=== PATIENT | female | born 1955 | race African-American/Black ===

== ENCOUNTER 2016-08-26 17:02 | Inpatient (IN) | payer MEDICARE ==
[~2016-08-26] VITALS: Ht 160 cm; Wt 53.1 kg
[~2016-08-26 17:02] MED LIST: ASPI-1159 PO; CARV6.2548 PO; D-ME118S13 PO; DIGO125T82 PO; GLIM2TAB2 PO; HYDR-4134 PO; INSU3INS6 SUBCUT; LINA5TAB PO; LOSA50TA20 PO; MONT10TA21 PO; NASOI BOTHNSTRLS; SAXA5TAB PO; SITA50TA3 PO; SPIR25TA4 PO; TIOT18CA3 INH
[2016-08-26] MEDS ORDERED: SODIUM CHLORIDE 0.9% 1,000 ML IV ONE (17:27)
[2016-08-26 17:48] LABS: EOSINOPHILS % 3.3 % (0.0-5.0); HEMATOCRIT. 30.1 % (36.0-48.0); HEMOGLOBIN. 9.6 g/dL (12.0-16.0); LYMPHOCYTES % 20.2 % (20.0-50.0); MEAN CORPUSCULAR HEMOGLOBIN 26.1 pg (28.0-32.0); MEAN CORPUSCULAR VOLUME 81.5 fL (81.0-99.0); MEAN PLATELET VOLUME 8.7 fl (7.4-10.4); NEUTROPHILS % 63.5 % (40.0-76.0); PLATELET 227 x1000/uL (130-400)
[2016-08-26 17:53] LABS: INR 1.1; PROTHROMBIN TIME 10.9 sec
[2016-08-26] MEDS ORDERED: ASPIRIN 325MG TABLET PO ONE (18:00)
[2016-08-26 18:07] LABS: CARBON DIOXIDE 26 mEq/L (21-32); CHLORIDE 106 mEq/L (98-107)
[2016-08-26 18:16] LABS: TROPONIN I 0.11 ng/mL (0.00-0.04)
[2016-08-26 23:16] VITALS: BP 136/73
[2016-08-26 23:24] VITALS: BP 136/73
[2016-08-26] MEDS ORDERED: HYDROCODONE/ACETAMINOPHEN 5/325MG TABLET PO PRN (23:45)
[2016-08-26] MEDS ORDERED: ONDANSETRON HCL 4MG/2ML VIAL IV PRN (23:45)
[2016-08-26] MEDS ORDERED: DEXTROSE 50% WATER 50ML SYRINGE IV PRN (23:45)
[2016-08-27 01:49] LABS: TROPONIN I 0.13 ng/mL (0.00-0.04)
[2016-08-27 01:50] LABS: CREATINE KINASE MB FRACTION 4.1 ng/mL (0.5-3.6)
[2016-08-27 04:00] VITALS: BP 132/78
[2016-08-27] MEDS: BLOOD SUGAR DIAGNOSTIC STRIP TEST SCH ×4 (07:24→21:10)
[2016-08-27 08:00] VITALS: BP 140/84
[2016-08-27] MEDS: ASPIRIN 81MG TABLET PO SCH (08:24)
[2016-08-27] MEDS: INSULIN LISPRO 100 UNITS/ML SUBCUT SCH ×4 (08:25→21:19)
[2016-08-27 10:35] LABS: BASOPHILS % 0.9 % (0.0-2.0); EOSINOPHILS % 3.3 % (0.0-5.0); HEMATOCRIT. 29.1 % (36.0-48.0); HEMOGLOBIN. 9.3 g/dL (12.0-16.0); LYMPHOCYTES % 19.9 % (20.0-50.0); MEAN CORPUSCULAR HEMOGLOBIN 25.9 pg (28.0-32.0); MEAN PLATELET VOLUME 8.9 fl (7.4-10.4); NEUTROPHILS % 61.9 % (40.0-76.0); PLATELET 218 x1000/uL (130-400); RED BLOOD CELL COUNT 3.59 mill/uL (4.2-5.4)
[2016-08-27 11:16] LABS: CREATINE KINASE MB FRACTION 4.2 ng/mL (0.5-3.6); TROPONIN I 0.13 ng/mL (0.00-0.04)
[2016-08-27 11:40] VITALS: BP 138/96
[2016-08-27] MEDS: HYDRALAZINE HCL 25MG TABLET PO SCH ×3 (13:29→21:07)
[2016-08-27 14:07] LABS: DIGOXIN 0.8 ng/mL (0.9-2.0)
[2016-08-27] MEDS: MONTELUKAST SODIUM 10MG TABLET PO SCH (17:01)
[2016-08-27] MEDS: CARVEDILOL 3.125 MG TABLET PO SCH (17:02)
[2016-08-27 19:17] LABS: *AMPHETAMINES SCREEN URINE NEGATIVE (NEGATIVE); *BARBITURATES SCREEN URINE NEGATIVE (NEGATIVE); *BENZODIAZEPINES SCREEN URINE NEGATIVE (NEGATIVE); *COCAINE SCREEN URINE NEGATIVE (NEGATIVE); CANNABINOID URINE SCREEN NEGATIVE (NEGATIVE); METHADONE URINE SCREEN NEGATIVE (NEGATIVE); OPIATES URINE SCREEN NEGATIVE (NEGATIVE); PHENCYCLIDINE URINE SCREEN NEGATIVE (NEGATIVE)
[2016-08-27 20:00] VITALS: BP 130/78
[2016-08-27] MEDS: LOSARTAN POTASSIUM 50 MG TABLET PO SCH (21:07)
[2016-08-28] VITALS: BP 129/92
[2016-08-28 04:00] VITALS: BP 134/85
[2016-08-28] MEDS: BLOOD SUGAR DIAGNOSTIC STRIP TEST SCH ×3 (06:45→18:12)
[2016-08-28] MEDS: INSULIN LISPRO 100 UNITS/ML SUBCUT SCH ×3 (06:45→18:13)
[2016-08-28] MEDS ORDERED: REGADENOSON 0.4 MG/5 ML IV ONE ×2 (07:30→08:38)
[2016-08-28] MEDS: CARVEDILOL 3.125 MG TABLET PO SCH ×2 (08:21→17:59)
[2016-08-28] MEDS: LOSARTAN POTASSIUM 50 MG TABLET PO SCH (08:22)
[2016-08-28] MEDS: ASPIRIN 81MG TABLET PO SCH (08:22)
[2016-08-28] MEDS: HYDRALAZINE HCL 25MG TABLET PO SCH ×3 (08:22→17:59)
[2016-08-28] MEDS ORDERED: LINAGLIPTIN 5MG TABLET PO SCH (09:00)
[2016-08-28] MEDS ORDERED: SPIRONOLACTONE 25MG TABLET PO SCH (09:00)
[2016-08-28] MEDS ORDERED: DIGOXIN 125MCG TABLET PO SCH (09:00)
[2016-08-28 11:21] LABS: HEMATOCRIT 29.9 % (36.0-48.0); HEMOGLOBIN 9.4 g/dL (12.0-16.0); MEAN CORPUSCULAR HEMOGLOBIN 25.6 pg (28.0-32.0); MEAN CORPUSCULAR VOLUME 81.2 fL (81.0-99.0); PLATELET 219 x1000/uL (130-400); RED BLOOD CELL COUNT 3.69 mill/uL (4.2-5.4); RED CELL DISTRIBUTION WIDTH 16.4 % (11.6-14.6)
[2016-08-28] MEDS: MONTELUKAST SODIUM 10MG TABLET PO SCH (17:59)
[2016-08-28 20:00] VITALS: BP 129/86
[2016-08-28 20:46] VITALS: BP 129/86
[2016-08-29] MEDS ORDERED: LOSARTAN POTASSIUM 25 MG TABLET PO SCH (09:00)
== END 2016-08-28 23:34 | disposition home or self-care (01) | DRG 308 ==
LOC: ER 19:19 → 7WST 20:16 → EDBEDREQTM 20:17 → EDBEDREQ 20:17 → ENRESERV 21:44
PROVIDERS: ADMIT Internal Medicine; ATTEND Internal Medicine
PROC: 4B02XTZ Measurement of Cardiac Defibrillator, External Approach (ICD-10-PCS; principal; 2016-08-26)
DX: I49.01 Ventricular fibrillation (principal); I50.23 Acute on chronic systolic (congestive) heart failure; I13.0 Hypertensive heart and chronic kidney disease with heart failure and stage 1 through stage 4 chronic kidney disease, or unspecified chronic kidney disease; I42.0 Dilated cardiomyopathy; D50.9 Iron deficiency anemia, unspecified; E11.22 Type 2 diabetes mellitus with diabetic chronic kidney disease; J44.9 Chronic obstructive pulmonary disease, unspecified; I25.10 Atherosclerotic heart disease of native coronary artery without angina pectoris; I44.7 Left bundle-branch block, unspecified; J98.4 Other disorders of lung; F17.210 Nicotine dependence, cigarettes, uncomplicated; N18.9 Chronic kidney disease, unspecified; Z79.4 Long term (current) use of insulin; Z79.82 Long term (current) use of aspirin; Z82.49 Family history of ischemic heart disease and other diseases of the circulatory system; Z83.3 Family history of diabetes mellitus; Z88.0 Allergy status to penicillin; Z88.8 Allergy status to other drugs, medicaments and biological substances; Z79.899 Other long term (current) drug therapy; Y92.89 Other specified places as the place of occurrence of the external cause; Z71.6 Tobacco abuse counseling; Z95.810 Presence of automatic (implantable) cardiac defibrillator
CPT/HCPCS: 36415; 71010; 78452; 80048; 80053; 80162; 80305; 82550; 82553; 82962; 83605; 83735; 83880; 84443; 84484; 85025; 85027; 85610; 93005; 93306; 96360; 99285; A9500; J1815; J2785; J7030

== ENCOUNTER 2016-11-07 00:05 | Inpatient (IN) | payer MEDICARE ==
[~2016-11-07] VITALS: Ht 160 cm; Wt 54.0 kg
[2016-11-07] MEDS ORDERED: SODIUM CHLORIDE 0.9% 1,000 ML IV ONE (01:13)
[2016-11-07] MEDS ORDERED: ONDANSETRON HCL 4MG/2ML VIAL IV STA (01:13)
[2016-11-07] MEDS ORDERED: MORPHINE SULFATE 4 MG/ML CPJ (NOT FOR IM USE) IV STA (01:13)
[2016-11-07] MEDS ORDERED: FAMOTIDINE 20MG/2ML VIAL IV STA (01:13)
[2016-11-07] MEDS ORDERED: ASPIRIN 81MG TABLET PO ONE (01:15)
[2016-11-07 01:38] LABS: BASOPHILS % 1.1 % (0.0-2.0); EOSINOPHILS % 1.5 % (0.0-5.0); HEMATOCRIT. 29.8 % (36.0-48.0); HEMOGLOBIN. 9.3 g/dL (12.0-16.0); LYMPHOCYTES % 19.3 % (20.0-50.0); MEAN CORPUSCULAR HEMOGLOBIN 23.5 pg (28.0-32.0); MEAN CORPUSCULAR VOLUME 75.1 fL (81.0-99.0); MEAN PLATELET VOLUME 8.5 fl (7.4-10.4); MONOCYTES % 14.9 % (2.0-8.0); NEUTROPHILS % 63.2 % (40.0-76.0); PLATELET 253 x1000/uL (130-400); RED BLOOD CELL COUNT 3.97 mill/uL (4.2-5.4); RED CELL DISTRIBUTION WIDTH 19.9 % (11.6-14.6)
[2016-11-07 01:47] LABS: INR 1.2; PROTHROMBIN TIME 12.8 sec (9.4-11.6)
[2016-11-07 01:51] LABS: AMMONIA 18 uMol/L (<32)
[2016-11-07 01:57] LABS: CARBON DIOXIDE 24 mEq/L (21-32); CHLORIDE 100 mEq/L (98-107); ETHANOL BLOOD < 10 mg/dL; TROPONIN I 0.08 ng/mL (0.00-0.04)
[2016-11-07] MEDS ORDERED: FUROSEMIDE 40MG/4ML VIAL IVP SCH (02:15)
[2016-11-07 04:54] LABS: CLARITY URINE CLEAR (CLEAR); COLOR URINE YELLOW (YELLOW); KETONES URINE NEGATIVE (NEGATIVE); LEUKOCYTE ESTERASE URINE NEGATIVE (NEGATIVE); NITRITE URINE NEGATIVE (NEGATIVE); OCCULT BLOOD URINE NEGATIVE (NEGATIVE); PROTEIN URINE 2+ (NEGATIVE); SPECIFIC GRAVITY URINE 1.016 (1.005-1.030)
[2016-11-07 06:20] LABS: *AMPHETAMINES SCREEN URINE NEGATIVE (NEGATIVE); *BARBITURATES SCREEN URINE NEGATIVE (NEGATIVE); *BENZODIAZEPINES SCREEN URINE NEGATIVE (NEGATIVE); *COCAINE SCREEN URINE NEGATIVE (NEGATIVE); CANNABINOID URINE SCREEN NEGATIVE (NEGATIVE); METHADONE URINE SCREEN NEGATIVE (NEGATIVE); OPIATES URINE SCREEN PRESUMTIVE POSITIVE (NEGATIVE); PHENCYCLIDINE URINE SCREEN NEGATIVE (NEGATIVE)
[2016-11-07] MEDS ORDERED: GUAIFENESIN 200MG/10ML SUGAR FREE UDC PO PRN (07:30)
[2016-11-07] MEDS ORDERED: ACETAMINOPHEN 325MG TABLET PO PRN (07:30)
[2016-11-07 09:02] LABS: FERRITIN 59 ng/mL (10-291)
[2016-11-07] MEDS ORDERED: INSULIN DETEMIR UD 100 UNITS/ML SYR SUBCUT SCH (10:00)
[2016-11-07] MEDS ORDERED: DIGOXIN 125MCG TABLET PO SCH (10:30)
[2016-11-07] MEDS ORDERED: DEXTROSE 50% WATER 50ML SYRINGE IV PRN (11:45)
[2016-11-07] MEDS: BUDESONIDE 0.5MG/2ML NEB HHN SCH ×2 (11:55→20:10)
[2016-11-07] MEDS: IPRATROPIUM/ALBUTEROL 0.5-3(2.5)MG/3ML NEB INH PRN (11:59)
[2016-11-07] MEDS: ENOXAPARIN 30MG/0.3ML SYR SUBCUT SCH (12:23)
[2016-11-07] MEDS: SPIRONOLACTONE 25MG TABLET PO SCH (12:24)
[2016-11-07] MEDS: ASPIRIN 81MG EC TABLET PO SCH (12:24)
[2016-11-07] MEDS: LOSARTAN POTASSIUM 50 MG TABLET PO SCH ×2 (12:24→21:26)
[2016-11-07] MEDS: HYDRALAZINE HCL 25MG TABLET PO SCH ×4 (12:24→21:00)
[2016-11-07] MEDS: BLOOD SUGAR DIAGNOSTIC STRIP TEST SCH ×3 (12:25→21:27)
[2016-11-07] MEDS: CARVEDILOL 3.125 MG TABLET PO SCH ×2 (12:33→21:26)
[2016-11-07] MEDS: INSULIN LISPRO 100 UNITS/ML SUBCUT SCH ×3 (13:45→21:21)
[2016-11-07 13:48] LABS: FOLIC ACID (FOLATE) SERUM > 20.00 ng/mL (>5.38)
[2016-11-07 13:49] LABS: VITAMIN B12 SERUM > 2000 pg/mL (211-911)
[2016-11-07] MEDS: SODIUM CHLORIDE 0.9% INJ 3ML FLUSH IVF SCH ×2 (14:27→21:27)
[2016-11-07] MEDS ORDERED: MONTELUKAST SODIUM 10MG TABLET PO SCH (21:00)
[2016-11-07] MEDS: INSULIN DETEMIR UD 100 UNITS/ML SYR SUBCUT SCH (23:08)
[2016-11-08] MEDS: SODIUM CHLORIDE 0.9% INJ 3ML FLUSH IVF SCH ×2 (06:00→14:00)
[2016-11-08] MEDS: BLOOD SUGAR DIAGNOSTIC STRIP TEST SCH ×2 (07:36→12:27)
[2016-11-08] MEDS: INSULIN LISPRO 100 UNITS/ML SUBCUT SCH ×2 (07:50→12:33)
[2016-11-08] MEDS: BUDESONIDE 0.5MG/2ML NEB HHN SCH (09:28)
[2016-11-08] MEDS: IPRATROPIUM/ALBUTEROL 0.5-3(2.5)MG/3ML NEB INH PRN (09:29)
[2016-11-08] MEDS: LOSARTAN POTASSIUM 50 MG TABLET PO SCH (10:00)
[2016-11-08] MEDS: CARVEDILOL 3.125 MG TABLET PO SCH (10:01)
[2016-11-08] MEDS: SPIRONOLACTONE 25MG TABLET PO SCH (10:01)
[2016-11-08] MEDS: ASPIRIN 81MG EC TABLET PO SCH (10:02)
[2016-11-08] MEDS: HYDRALAZINE HCL 25MG TABLET PO SCH ×2 (10:02→13:00)
[2016-11-08] MEDS: INSULIN DETEMIR UD 100 UNITS/ML SYR SUBCUT SCH (10:03)
[2016-11-08] MEDS: ENOXAPARIN 30MG/0.3ML SYR SUBCUT SCH (10:03)
[2016-11-08 12:00] VITALS: BP 120/69
[2016-11-10 14:21] LABS: ALBUMIN 3.4 g/dL (2.9-4.4); ALPHA-1-GLOBULIN 0.3 g/dL (0.0-0.4); ALPHA-2-GLOBULIN 0.8 g/dL (0.4-1.0); BETA GLOBULIN 0.8 g/dL (0.7-1.3); GAMMA GLOBULINS 1.7 g/dL (0.4-1.8); GLOBULIN TOTAL 3.5 g/dL (2.2-3.9); M-SPIKE Not Observed g/dL (Not Observed); TOTAL PROTEIN SERUM 6.9 g/dL (6.0-8.5)
== END 2016-11-08 15:35 | disposition home or self-care (01) | DRG 392 ==
LOC: ER 01:19 → ENRESERV 06:55 → 6WST 10:31
PROVIDERS: ADMIT Internal Medicine; ATTEND Internal Medicine
DX: R14.0 Abdominal distension (gaseous) (principal); I13.0 Hypertensive heart and chronic kidney disease with heart failure and stage 1 through stage 4 chronic kidney disease, or unspecified chronic kidney disease; I50.9 Heart failure, unspecified; K75.9 Inflammatory liver disease, unspecified; N18.9 Chronic kidney disease, unspecified; E11.9 Type 2 diabetes mellitus without complications; I25.10 Atherosclerotic heart disease of native coronary artery without angina pectoris; J44.9 Chronic obstructive pulmonary disease, unspecified; Z95.810 Presence of automatic (implantable) cardiac defibrillator; Z87.891 Personal history of nicotine dependence; Z88.0 Allergy status to penicillin; Z88.6 Allergy status to analgesic agent; Z79.82 Long term (current) use of aspirin; Z79.899 Other long term (current) drug therapy; Z79.4 Long term (current) use of insulin
CPT/HCPCS: 36415; 71010; 74176; 80053; 80305; 81001; 82140; 82607; 82728; 82746; 82962; 83540; 83550; 83605; 83690; 83880; 84155; 84165; 84443; 84484; 85025; 85610; 93005; 94640; 94664; 96361; 96372; 96374; 96375; 99285; G0482; J1650; J1815; J1940; J2270; J2405; J3490; J7030; J7620; J7626

== ENCOUNTER 2016-12-03 17:34 | Inpatient (IN) | payer MEDICARE ==
[~2016-12-03] VITALS: Ht 160 cm; Wt 56.2 kg
[2016-12-03 18:21] LABS: HEMATOCRIT. 28.6 % (36.0-48.0); HEMOGLOBIN. 8.8 g/dL (12.0-16.0); MEAN CORPUSCULAR HEMOGLOBIN 22.2 pg (28.0-32.0); MEAN CORPUSCULAR VOLUME 72.2 fL (81.0-99.0); MEAN PLATELET VOLUME 8.7 fl (7.4-10.4); PLATELET 224 x1000/uL (130-400); RED BLOOD CELL COUNT 3.96 mill/uL (4.2-5.4)
[2016-12-03 18:25] LABS: INR 1.3; PROTHROMBIN TIME 13.1 sec (9.4-11.6)
[2016-12-03 18:29] LABS: CARBON DIOXIDE 25 mEq/L (21-32); CHLORIDE 97 mEq/L (98-107)
[2016-12-03 18:34] LABS: TROPONIN I 0.13 ng/mL (0.00-0.04)
[2016-12-03 18:45] LABS: NUCLEATED RED BLOOD CELLS 1 /100 WBC; PLATELET ESTIMATE NORMAL
[2016-12-03] MEDS ORDERED: NITROGLYCERIN 0.4MG TABLET SL SL PRN (19:00)
[2016-12-03] MEDS ORDERED: ASPIRIN 81MG TABLET PO ONE (19:00)
[2016-12-03] MEDS ORDERED: ACETAMINOPHEN 325MG TABLET PO PRN ×2 (19:15→23:30)
[2016-12-03 21:10] VITALS: BP 114/78
[2016-12-03] MEDS ORDERED: FUROSEMIDE 40MG/4ML VIAL IVP SCH (23:30)
[2016-12-03] MEDS ORDERED: TEMAZEPAM 15MG CAPSULE PO PRN (23:30)
[2016-12-03] MEDS ORDERED: IPRATROPIUM/ALBUTEROL 0.5-3(2.5)MG/3ML NEB HHN PRN (23:30)
[2016-12-03] MEDS ORDERED: DEXTROSE 50% WATER 50ML SYRINGE IV PRN (23:30)
[2016-12-04] VITALS (17 sets, daily range): BP systolic 101–140; BP diastolic 36–89
[2016-12-04] MEDS: HYDRALAZINE HCL 25MG TABLET PO SCH ×5 (00:09→23:29)
[2016-12-04] MEDS: FUROSEMIDE 100MG/10ML VIAL IVP SCH ×3 (00:14→23:28)
[2016-12-04] MEDS: POTASSIUM CHLORIDE 20MEQ TABLET SR PO SCH ×3 (00:26→16:59)
[2016-12-04 03:54] LABS: CREATINE KINASE MB FRACTION 3.6 ng/mL (0.5-3.6); TROPONIN I 0.11 ng/mL (0.00-0.04)
[2016-12-04] MEDS: BLOOD SUGAR DIAGNOSTIC STRIP TEST SCH ×4 (06:47→21:27)
[2016-12-04 07:34] LABS: CARBON DIOXIDE 25 mEq/L (21-32); CHLORIDE 96 mEq/L (98-107)
[2016-12-04 07:41] LABS: CREATINE KINASE 96 IU/L (26-192); CREATINE KINASE MB FRACTION 3.2 ng/mL (0.5-3.6); TROPONIN I 0.11 ng/mL (0.00-0.04)
[2016-12-04 07:43] LABS: HEMATOCRIT. 27.6 % (36.0-48.0); HEMOGLOBIN. 8.6 g/dL (12.0-16.0); MEAN CORPUSCULAR HEMOGLOBIN 22.3 pg (28.0-32.0); MEAN CORPUSCULAR VOLUME 71.2 fL (81.0-99.0); MEAN PLATELET VOLUME 9.3 fl (7.4-10.4); PLATELET 235 x1000/uL (130-400); RED BLOOD CELL COUNT 3.88 mill/uL (4.2-5.4); RED CELL DISTRIBUTION WIDTH 20.4 % (11.6-14.6)
[2016-12-04] MEDS: ASPIRIN 81MG EC TABLET PO SCH (08:18)
[2016-12-04] MEDS: LOSARTAN POTASSIUM 50 MG TABLET PO SCH ×2 (08:19→21:00)
[2016-12-04] MEDS: CARVEDILOL 3.125 MG TABLET PO SCH ×2 (08:19→21:00)
[2016-12-04] MEDS: ENOXAPARIN 30MG/0.3ML SYR SUBCUT SCH (08:19)
[2016-12-04] MEDS: INSULIN LISPRO 100 UNITS/ML SUBCUT SCH ×4 (08:22→21:00)
[2016-12-04] MEDS ORDERED: FUROSEMIDE 40MG/4ML VIAL IVP SCH (09:00)
[2016-12-04] MEDS ORDERED: INSULIN DETEMIR UD 100 UNITS/ML SYR SUBCUT SCH (10:00)
[2016-12-04] MEDS ORDERED: MORPHINE SULFATE 4 MG/ML CPJ (NOT FOR IM USE) IV SCH (10:30)
[2016-12-04] MEDS ORDERED: AMLODIPINE 2.5MG TABLET PO NR (11:00)
[2016-12-04 14:13] LABS: PLATELET ESTIMATE NORMAL
[2016-12-04] MEDS: MILRINONE 20MG-DEXT 5% PREMIX 100 ML IV SCH (19:32)
[2016-12-04] MEDS: INSULIN DETEMIR UD 100 UNITS/ML SYR SUBCUT SCH (21:38)
[2016-12-04] MEDS: MONTELUKAST SODIUM 10MG TABLET PO SCH (21:39)
[2016-12-05] VITALS (18 sets, daily range): BP systolic 105–145; BP diastolic 43–98
[2016-12-05] MEDS: HYDRALAZINE HCL 25MG TABLET PO SCH ×3 (05:36→17:17)
[2016-12-05 06:28] LABS: HEMATOCRIT. 27.5 % (36.0-48.0); HEMOGLOBIN. 8.5 g/dL (12.0-16.0); MEAN CORPUSCULAR HEMOGLOBIN 21.9 pg (28.0-32.0); MEAN CORPUSCULAR VOLUME 70.6 fL (81.0-99.0); MEAN PLATELET VOLUME 8.8 fl (7.4-10.4); PLATELET 223 x1000/uL (130-400); RED CELL DISTRIBUTION WIDTH 20.2 % (11.6-14.6)
[2016-12-05 07:25] LABS: TROPONIN I 0.1 ng/mL (0.00-0.04)
[2016-12-05] MEDS: BLOOD SUGAR DIAGNOSTIC STRIP TEST SCH ×4 (07:37→21:10)
[2016-12-05] MEDS: AMLODIPINE 2.5MG TABLET PO SCH (08:22)
[2016-12-05] MEDS: POTASSIUM CHLORIDE 20MEQ TABLET SR PO SCH ×2 (08:22→17:17)
[2016-12-05] MEDS: ASPIRIN 81MG EC TABLET PO SCH (08:22)
[2016-12-05] MEDS: INSULIN LISPRO 100 UNITS/ML SUBCUT SCH ×4 (08:22→21:07)
[2016-12-05] MEDS: LOSARTAN POTASSIUM 50 MG TABLET PO SCH ×2 (08:23→21:05)
[2016-12-05] MEDS: CARVEDILOL 3.125 MG TABLET PO SCH ×2 (08:23→21:05)
[2016-12-05] MEDS: ENOXAPARIN 30MG/0.3ML SYR SUBCUT SCH (08:23)
[2016-12-05] MEDS: FUROSEMIDE 100MG/10ML VIAL IVP SCH ×2 (08:23→17:17)
[2016-12-05] MEDS: INSULIN DETEMIR UD 100 UNITS/ML SYR SUBCUT SCH ×2 (09:29→21:59)
[2016-12-05] MEDS: MILRINONE 20MG-DEXT 5% PREMIX 100 ML IV SCH (14:12)
[2016-12-05 14:23] LABS: PLATELET ESTIMATE NORMAL
[2016-12-05] MEDS: MONTELUKAST SODIUM 10MG TABLET PO SCH (21:05)
[2016-12-06] VITALS (17 sets, daily range): BP systolic 108–136; BP diastolic 58–86
[2016-12-06] MEDS: HYDRALAZINE HCL 25MG TABLET PO SCH ×5 (00:24→23:26)
[2016-12-06] MEDS: BLOOD SUGAR DIAGNOSTIC STRIP TEST SCH ×4 (05:53→21:09)
[2016-12-06] MEDS: MILRINONE 20MG-DEXT 5% PREMIX 100 ML IV SCH ×2 (05:53→23:26)
[2016-12-06] MEDS: AMLODIPINE 2.5MG TABLET PO SCH (08:01)
[2016-12-06] MEDS: ASPIRIN 81MG EC TABLET PO SCH (08:01)
[2016-12-06] MEDS: LOSARTAN POTASSIUM 50 MG TABLET PO SCH ×2 (08:01→21:13)
[2016-12-06] MEDS: INSULIN LISPRO 100 UNITS/ML SUBCUT SCH ×4 (08:01→21:00)
[2016-12-06] MEDS: POTASSIUM CHLORIDE 20MEQ TABLET SR PO SCH ×2 (08:01→17:12)
[2016-12-06] MEDS: CARVEDILOL 3.125 MG TABLET PO SCH ×2 (08:01→21:13)
[2016-12-06] MEDS: FUROSEMIDE 100MG/10ML VIAL IVP SCH ×2 (08:02→17:12)
[2016-12-06] MEDS: ENOXAPARIN 30MG/0.3ML SYR SUBCUT SCH (08:02)
[2016-12-06] MEDS: INSULIN DETEMIR UD 100 UNITS/ML SYR SUBCUT SCH ×2 (10:21→21:09)
[2016-12-06] MEDS ORDERED: LACTULOSE 20G/30ML UDC PO PRN ×2 (15:00→21:00)
[2016-12-06] MEDS: MONTELUKAST SODIUM 10MG TABLET PO SCH (21:13)
[2016-12-07] VITALS (16 sets, daily range): BP systolic 122–150; BP diastolic 62–82
[2016-12-07 06:02] LABS: HEMATOCRIT. 26.2 % (36.0-48.0); HEMOGLOBIN. 8.1 g/dL (12.0-16.0); MEAN CORPUSCULAR HEMOGLOBIN 21.9 pg (28.0-32.0); MEAN CORPUSCULAR VOLUME 70.7 fL (81.0-99.0); MEAN PLATELET VOLUME 8.4 fl (7.4-10.4); PLATELET 237 x1000/uL (130-400); RED BLOOD CELL COUNT 3.71 mill/uL (4.2-5.4); RED CELL DISTRIBUTION WIDTH 19.4 % (11.6-14.6)
[2016-12-07] MEDS: HYDRALAZINE HCL 25MG TABLET PO SCH ×3 (06:04→17:20)
[2016-12-07] MEDS: BLOOD SUGAR DIAGNOSTIC STRIP TEST SCH ×4 (07:12→21:24)
[2016-12-07] MEDS: CARVEDILOL 3.125 MG TABLET PO SCH ×2 (08:18→21:51)
[2016-12-07] MEDS: AMLODIPINE 2.5MG TABLET PO SCH (08:18)
[2016-12-07] MEDS: ASPIRIN 81MG EC TABLET PO SCH (08:18)
[2016-12-07] MEDS: LOSARTAN POTASSIUM 50 MG TABLET PO SCH ×2 (08:18→21:50)
[2016-12-07] MEDS: POTASSIUM CHLORIDE 20MEQ TABLET SR PO SCH ×2 (08:18→17:20)
[2016-12-07] MEDS: ENOXAPARIN 30MG/0.3ML SYR SUBCUT SCH (08:18)
[2016-12-07] MEDS: INSULIN LISPRO 100 UNITS/ML SUBCUT SCH ×4 (08:19→21:48)
[2016-12-07] MEDS: FUROSEMIDE 100MG/10ML VIAL IVP SCH ×2 (08:19→17:20)
[2016-12-07] MEDS: INSULIN DETEMIR UD 100 UNITS/ML SYR SUBCUT SCH ×2 (10:17→21:49)
[2016-12-07 16:36] LABS: PLATELET ESTIMATE NORMAL
[2016-12-07] MEDS: MILRINONE 20MG-DEXT 5% PREMIX 100 ML IV SCH (18:19)
[2016-12-07] MEDS: MONTELUKAST SODIUM 10MG TABLET PO SCH (21:50)
[2016-12-08] VITALS (11 sets, daily range): BP systolic 112–130; BP diastolic 51–87
[2016-12-08] MEDS: HYDRALAZINE HCL 25MG TABLET PO SCH ×4 (00:36→17:35)
[2016-12-08] MEDS: MILRINONE 20MG-DEXT 5% PREMIX 100 ML IV SCH ×3 (00:59→16:36)
[2016-12-08] MEDS: BLOOD SUGAR DIAGNOSTIC STRIP TEST SCH ×4 (06:25→21:27)
[2016-12-08 07:57] LABS: HEMATOCRIT. 26.7 % (36.0-48.0); HEMOGLOBIN. 8.2 g/dL (12.0-16.0); MEAN CORPUSCULAR HEMOGLOBIN 21.6 pg (28.0-32.0); MEAN CORPUSCULAR VOLUME 70.5 fL (81.0-99.0); MEAN PLATELET VOLUME 8.5 fl (7.4-10.4); PLATELET 224 x1000/uL (130-400); RED BLOOD CELL COUNT 3.79 mill/uL (4.2-5.4); RED CELL DISTRIBUTION WIDTH 19.5 % (11.6-14.6)
[2016-12-08] MEDS: INSULIN LISPRO 100 UNITS/ML SUBCUT SCH ×4 (08:06→21:00)
[2016-12-08] MEDS: ASPIRIN 81MG EC TABLET PO SCH (08:07)
[2016-12-08] MEDS: POTASSIUM CHLORIDE 20MEQ TABLET SR PO SCH ×2 (08:07→16:35)
[2016-12-08] MEDS: ENOXAPARIN 30MG/0.3ML SYR SUBCUT SCH (08:07)
[2016-12-08] MEDS: AMLODIPINE 2.5MG TABLET PO SCH (08:10)
[2016-12-08] MEDS: CARVEDILOL 3.125 MG TABLET PO SCH ×2 (08:11→21:27)
[2016-12-08] MEDS: FUROSEMIDE 100MG/10ML VIAL IVP SCH ×2 (08:11→16:35)
[2016-12-08] MEDS: LOSARTAN POTASSIUM 50 MG TABLET PO SCH ×2 (10:12→21:27)
[2016-12-08] MEDS: INSULIN DETEMIR UD 100 UNITS/ML SYR SUBCUT SCH ×2 (11:13→23:04)
[2016-12-08] MEDS ORDERED: METOLAZONE 2.5MG TABLET PO NR (16:00)
[2016-12-08 16:14] LABS: PLATELET ESTIMATE NORMAL
[2016-12-08] MEDS: MONTELUKAST SODIUM 10MG TABLET PO SCH (21:27)
[2016-12-09] VITALS (8 sets, daily range): BP systolic 105–129; BP diastolic 58–86
[2016-12-09] MEDS: HYDRALAZINE HCL 25MG TABLET PO SCH ×3 (00:07→11:41)
[2016-12-09] MEDS: MILRINONE 20MG-DEXT 5% PREMIX 100 ML IV SCH (01:01)
[2016-12-09] MEDS: BLOOD SUGAR DIAGNOSTIC STRIP TEST SCH ×2 (06:12→11:07)
[2016-12-09 07:33] LABS: HEMATOCRIT. 27.5 % (36.0-48.0); HEMOGLOBIN. 8.6 g/dL (12.0-16.0); MEAN CORPUSCULAR HEMOGLOBIN 21.8 pg (28.0-32.0); MEAN CORPUSCULAR VOLUME 69.7 fL (81.0-99.0); MEAN PLATELET VOLUME 8.6 fl (7.4-10.4); PLATELET 226 x1000/uL (130-400); RED BLOOD CELL COUNT 3.95 mill/uL (4.2-5.4); RED CELL DISTRIBUTION WIDTH 19.5 % (11.6-14.6)
[2016-12-09] MEDS: INSULIN LISPRO 100 UNITS/ML SUBCUT SCH ×2 (08:05→11:07)
[2016-12-09] MEDS: POTASSIUM CHLORIDE 20MEQ TABLET SR PO SCH (08:08)
[2016-12-09] MEDS: ASPIRIN 81MG EC TABLET PO SCH (08:08)
[2016-12-09] MEDS: AMLODIPINE 2.5MG TABLET PO SCH (08:08)
[2016-12-09] MEDS: FUROSEMIDE 100MG/10ML VIAL IVP SCH (08:08)
[2016-12-09] MEDS: CARVEDILOL 3.125 MG TABLET PO SCH (08:09)
[2016-12-09] MEDS: ENOXAPARIN 30MG/0.3ML SYR SUBCUT SCH (08:09)
[2016-12-09] MEDS ORDERED: MILRINONE 20MG-DEXT 5% PREMIX 100 ML IV SCH ×2 (08:51→09:45)
[2016-12-09] MEDS: LOSARTAN POTASSIUM 50 MG TABLET PO SCH (10:00)
[2016-12-09] MEDS: INSULIN DETEMIR UD 100 UNITS/ML SYR SUBCUT SCH (10:00)
[2016-12-09] MEDS ORDERED: FUROSEMIDE 40MG TABLET PO SCH (18:00)
[2016-12-09 20:31] LABS: PLATELET ESTIMATE NORMAL
== END 2016-12-09 14:00 | disposition home or self-care (01) | DRG 291 ==
LOC: ER 17:34 → 3WST 19:01 → ENRESERV 19:08
PROVIDERS: ADMIT Internal Medicine; ATTEND Internal Medicine
DX: I13.0 Hypertensive heart and chronic kidney disease with heart failure and stage 1 through stage 4 chronic kidney disease, or unspecified chronic kidney disease (principal); I50.23 Acute on chronic systolic (congestive) heart failure; E11.22 Type 2 diabetes mellitus with diabetic chronic kidney disease; I42.0 Dilated cardiomyopathy; E87.1 Hypo-osmolality and hyponatremia; N18.9 Chronic kidney disease, unspecified; J44.9 Chronic obstructive pulmonary disease, unspecified; I08.0 Rheumatic disorders of both mitral and aortic valves; I27.2 Other secondary pulmonary hypertension; I25.10 Atherosclerotic heart disease of native coronary artery without angina pectoris; D63.8 Anemia in other chronic diseases classified elsewhere; Z88.0 Allergy status to penicillin; Z95.810 Presence of automatic (implantable) cardiac defibrillator; Z87.891 Personal history of nicotine dependence; Z83.3 Family history of diabetes mellitus; Z82.49 Family history of ischemic heart disease and other diseases of the circulatory system; Z79.84 Long term (current) use of oral hypoglycemic drugs; Z79.4 Long term (current) use of insulin; Z79.899 Other long term (current) drug therapy; Z79.82 Long term (current) use of aspirin; Z68.22 Body mass index [BMI] 22.0-22.9, adult
CPT/HCPCS: 36415; 71010; 80048; 80053; 82550; 82553; 82962; 83880; 84484; 85025; 85610; 93005; 93306; 93970; 97116; 97162; 97165; 97535; 99285; C1893; J1650; J1815; J1940; J2260; J2270